=== PATIENT | female | born 1960 | race African-American/Black ===

== ENCOUNTER 2020-03-09 13:20 | Day surgery (SDC) | payer OTHER ==
[~2020-03-09] VITALS: Ht 160 cm; Wt 86.4 kg
[~2020-03-09 13:20] MED LIST: LIDOCAINE/PF 2% 5 ML VIAL INJ ONE; PROPOFOL 1% 20 ML VIAL IVP ONE
[2020-03-09] MEDS ORDERED: SODIUM CHLORIDE 0.9% 1,000 ML IV ONE (13:45)
[2020-03-09 14:26] LABS: GLUCOMETER DEV NAME(LOC) SDS.; GLUCOSE,POINT OF CARE 103 MG/DL (70-110)
[2020-03-09] MEDS ORDERED: SITA25 PO (14:54)
[2020-03-09] MEDS ORDERED: PERCT PO (14:54)
[2020-03-09] MEDS ORDERED: OMEP20 PO (14:54)
[2020-03-09] MEDS ORDERED: INSLAN SQ (14:54)
[2020-03-09] MEDS ORDERED: EMPA25TA PO (14:54)
[2020-03-09] MEDS ORDERED: POLY17PO47 PO (14:54)
== END 2020-03-09 17:50 | disposition home or self-care (01) ==
LOC: SURGERY 13:20 → EDSEX 15:30 → SURGERY 17:50
PROVIDERS: ATTEND Internal Medicine Gastroenterology
DX: K29.70 Gastritis, unspecified, without bleeding (principal); K31.1 Adult hypertrophic pyloric stenosis; E11.9 Type 2 diabetes mellitus without complications; Z79.4 Long term (current) use of insulin; Z79.899 Other long term (current) drug therapy; Z87.891 Personal history of nicotine dependence; Z90.710 Acquired absence of both cervix and uterus; Z98.890 Other specified postprocedural states
CPT/HCPCS: 43245; 74360; 82962; C1769; J2704; J3490

== ENCOUNTER 2020-03-23 13:15 | Day surgery (SDC) | payer OTHER ==
[~2020-03-23] VITALS: Ht 160 cm; Wt 78.2 kg
[~2020-03-23 13:15] MED LIST changes: +EMPA25TA PO; +INSLAN SQ; +IOTHALAMATE MEGLUMINE 600 MG/ML 50 ML VIAL IVP ONE; +OMEP20 PO; +ONDANSETRON HCL 4 MG/2 ML VIAL IVP ONE; +PERCT PO; +POLY17PO47 PO; +SITA25 PO
[2020-03-23] MEDS ORDERED: SODIUM CHLORIDE 0.9% 1,000 ML ONE (13:32)
[2020-03-23] MEDS ORDERED: SODIUM CHLORIDE 0.9% 1,000 ML IV ONE (14:00)
[2020-03-23 14:10] LABS: GLUCOMETER DEV NAME(LOC) SDS.; GLUCOSE,POINT OF CARE 155 MG/DL (70-110)
== END 2020-03-23 19:10 | disposition home or self-care (01) ==
LOC: SURGERY 13:15
PROVIDERS: ATTEND Internal Medicine Gastroenterology
DX: K31.1 Adult hypertrophic pyloric stenosis (principal); E78.00 Pure hypercholesterolemia, unspecified; F32.9 Major depressive disorder, single episode, unspecified; K21.9 Gastro-esophageal reflux disease without esophagitis; Z20.828 Contact with and (suspected) exposure to other viral communicable diseases; Z90.710 Acquired absence of both cervix and uterus; Z98.890 Other specified postprocedural states; Z79.4 Long term (current) use of insulin
CPT/HCPCS: 43245; 74360; 82962; 87635; C1769; J2405; J2704; J3490; J7030; Q9961

== ENCOUNTER → 2020-04-20 | Day surgery (SDC) | payer OTHER ==
[~2020-04-20] VITALS: Ht 160 cm; Wt 84.1 kg
[~2020-04-20] MED LIST changes: +DEXAMETHASONE SOD PHOS 4 MG/ML VIAL IVP ONE; +FentaNYL CITRATE-PF 100 MCG/2 ML VIAL IVP ONE; -LIDOCAINE/PF 2% 5 ML VIAL INJ ONE; +MIDAZOLAM HCL 2 MG/2 ML VIAL IVP ONE; +SODIUM CHLORIDE 0.9% 1,000 ML IV ONE; +SODIUM CHLORIDE 0.9% 1,000 ML ONE; +SUCCINYLCHOLINE CHLORIDE 20 MG/ML 10 ML VIAL IVP ONE
[2020-04-20 13:06] LABS: COVID AG,FIA SOURCE NASOPHARYNGEAL
[2020-04-20 14:46] LABS: GLUCOMETER DEV NAME(LOC) SDS.; GLUCOSE,POINT OF CARE 107 MG/DL (70-110)
== END | disposition home or self-care (01) ==
LOC: SURGERY 12:20
PROVIDERS: ATTEND Internal Medicine Gastroenterology
DX: K31.1 Adult hypertrophic pyloric stenosis (principal); K44.9 Diaphragmatic hernia without obstruction or gangrene; K29.70 Gastritis, unspecified, without bleeding; Z20.828 Contact with and (suspected) exposure to other viral communicable diseases; K21.9 Gastro-esophageal reflux disease without esophagitis; E11.9 Type 2 diabetes mellitus without complications; Z90.710 Acquired absence of both cervix and uterus; Z90.49 Acquired absence of other specified parts of digestive tract
CPT/HCPCS: 43245; 74360; 82962; 87426; C9803; J0330; J1100; J2250; J2405; J2704; J3010; J7030; Q9961